=== PATIENT | female | born 1980 | race Caucasian/White ===

== ENCOUNTER 2016-08-16 23:50 | Emergency (ER) | payer OTHER ==
[2016-08-16 23:42] LABS: BASOPHILS 0.1 %; BASOPHILS ABSOLUTE 0.01 10/3/uL (0.0-0.16); EOSINOPHILS 1.2 %; EOSINOPHILS ABSOLUTE 0.09 10/3/uL (0.0-0.53); HEMATOCRIT 38.6 % (36.0-48.0); HEMOGLOBIN 13.2 g/dL (12.0-16.0); IMMATURE GRANULOCYTES 0.1 %; IMMATURE GRANULOCYTES ABSOLUTE 0.01 10/3/uL (0.0-0.11); LYMPHOCYTES 23.4 %; LYMPHOCYTES ABSOLUTE 1.73 10/3/uL (0.67-4.30); MEAN CORPUS HGB CONC 34.2 g/dL (32.0-36.0); MEAN CORPUSCULAR HEMOGLOB 28.9 pg (26.0-34.0); MEAN CORPUSCULAR VOLUME 84.6 fL (80-100); MEAN PLATELET VOLUME 9.8 fL (9.2-13.0); MONOCYTES 5.8 %; MONOCYTES ABSOLUTE 0.43 10/3/uL (0.21-1.20); NEUTROPHILS 69.4 %; NEUTROPHILS ABSOLUTE 5.11 10/3/uL (2.02-8.40); PLATELET COUNT 285 10/3/uL (150-400); RBC DISTRIBUTION WIDTH 12.7 % (12.0-16.0); RED CELL COUNT 4.56 10/6/uL (4.0-5.6); WHITE BLOOD CELLS 7.4 10/3/uL (4.5-10.5)
[2016-08-16 23:43] LABS: MANUAL DIFF NO %
[2016-08-16 23:50] LABS: ASCORBIC ACID (UR NOT ORDER) NEG (NEG); BILIRUBIN, URINE NEGATIVE (NEG); ER URINALYSIS TAT 0 Hrs 09 Mins; KETONE, URINE NEGATIVE (NEG); LEUKOCYTE ESTERASE(NOT OR NEG (NEG); NITRITE (URINE) POS (NEG); WBC (NOT ORDERED) (RFLEX) 2 (0-5)
[2016-08-16 23:58] LABS: ALBUMIN 3.8 G/DL (3.5-5.0); ALKALINE PHOSPHATASE 84 U/L (45-117); BUN (BLOOD UREA NITROGEN) 11 MG/DL (6-23); CALCIUM, SERUM 9.2 MG/DL (8.5-10.4); CHLORIDE, SERUM 109 MMOL/L (96-112); CO2 (CARBON DIOXIDE) 24 MMOL/L (24-34); CREATININE 0.72 MG/DL (0.55-1.02); GFR AFRICAN AMERICAN 125 ML/MIN (>=60); GFR NON AFRICAN AMERICAN 108 ML/MIN (>=60); GLOBULIN 3.7 G/DL (2.5-4.1); GLUCOSE, SERUM 101 MG/DL (60-99); POTASSIUM, SERUM 3.8 MMOL/L (3.5-5.3); SGOT(AST) 15 U/L (5-40); SGPT(ALT) 22 U/L (5-65); SODIUM, SERUM 141 MMOL/L (135-148); TOTAL BILIRUBIN 0.4 MG/DL (0-1.2); TOTAL PROTEIN 7.5 G/DL (6.0-8.5)
[2016-11-24] MEDS ORDERED: MYRBETRIQ50 MG PO (11:29)
[2016-11-24] MEDS ORDERED: PROTONIX PO (11:29)
[2016-11-24] MEDS ORDERED: ELLURA PO (11:31)
[2016-11-24] MEDS ORDERED: EXCEDRIN TENSI1 EACH PO (11:32)
[2016-11-24] MEDS ORDERED: D MANNOSE PO (11:33)
== END 2016-08-17 03:39 | disposition home or self-care (01) ==
LOC: ER 23:50
PROVIDERS: Emergency Medicine
DX: N39.0 Urinary tract infection, site not specified (principal); R10.13 Epigastric pain; Z90.49 Acquired absence of other specified parts of digestive tract; Z88.5 Allergy status to narcotic agent
CPT/HCPCS: 71010; 74176; 80053; 81001; 83690; 84703; 85025; 96374; 99284; A9270-GY; J1170; J2405

== ENCOUNTER 2016-11-26 14:35 | Observation (INO) | payer OTHER ==
[~2016-11-26] VITALS: Ht 162.6 cm; Wt 85.4 kg
--- NOTE | ~2016-11-26 | CN ---
Consultation Report [facility] [address] [place]. [address] NAME: ROBERT BURGOS : 80 STATUS : DIS Napoleon PAT#: [id number] AGE: 36 ADM/REG DATE : 11/26/16 MR#: [id number] REPORT SERV DATE: 11/27/16 DICTATED BY: HARITHA MATOS DATE: 11/27/16 REPORT STATUS : Draft TRANSCRIBED BY: MODL DATE: 11/27/16 GI CONSULTATION DATE OF CONSULTATION: 11/27/2016 REASON FOR CONSULTATION: Evaluation and management of abdominal pain, status post endoscopic ultrasound. HISTORY OF PRESENT ILLNESS: Ms. Burgos is a 36-year-old female patient, who is known to Dr. Padma Cunha in the outpatient setting, who had an endoscopic ultrasound under the direction of Dr. Antoine on 11/26/2016 secondary to suspected chronic pancreatitis. Exam showed pancreatic parenchymal abnormalities consisting of lobularity throughout the entire pancreas. The pancreatic duct had normal endoscopic appearance, measuring up to 1 mm. No sign of significant pathology in the common bile duct. No pathology in the duodenum. Endoscopic images of the stomach were unremarkable. No pathology was seen in the esophagus. There were no biopsies or tissue samples taken. At that point in time, she states that she was discharged to home. She began to have abdominal pain as well as fevers up to 101.3 degrees. She called the office and was directed here for further evaluation. In brief, the patient has a history of chronic abdominal pain, which began in 2011 shortly after cholecystectomy. She states that she had previously been diagnosed with pancreatic divisum with stenting to the pancreatic duct before. She states that she continues to have recurrent bouts of epigastric bandlike pain and was seen by Dr. Cunha after she moved from the [place] to [place]. At current time of my rounding, the patient's pain has improved. She has been able to eat and tolerate a vegetarian diet without any pain, and she has been afebrile since admission. She did have a slightly elevated white blood cell count of 12.8 on admission, currently it is 6.5. She would like to go home. Pain and nausea medications have been left by the hospitalist. I have discussed with her, if she is tolerating a diet, she can be discharged later today to follow up with Dr. Cunha. For other testing, per Dr. Antoine' orders. PAST MEDICAL HISTORY: For chronic abdominal pain, pancreatic divisum, history of ERCP- induced pancreatitis, chronic cholecystitis with cholecystectomy in the past, pancreatic ductal stone with removal, chronic pancreatitis by EUS. SURGERIES: Cholecystectomy, appendectomy, pancreatic stent with removal. ALLERGIES: NOTED TO MORPHINE. HOME MEDICATIONS: Zyrtec, cranberry, Myrbetriq, Protonix, Ellura, D mannose [id number] supplement. REVIEW OF SYSTEMS: A 10-point review of systems has been obtained with pertinent positives being addressed in the history of present illness. Consultation Report [place] [id number] [facility] [place]. [address] NAME: ROBERT BURGOS : 80 STATUS : DIS Napoleon PAT#: [id number] AGE: 36 ADM/REG DATE : 11/26/16 MR#: [id number] REPORT SERV DATE: 11/27/16 DICTATED BY: HARITHA MATOS DATE: 11/27/16 REPORT STATUS : Draft TRANSCRIBED BY: MALGORZATA DATE: 11/27/16 PHYSICAL EXAMINATION: VITAL SIGNS: Temperature 98.9, pulse 90, respirations 21, blood pressure 119/71. NEURO: Reveals an alert, female, resting in bed with no focal deficits being noted. GENERAL: She is cooperative. She is in no acute distress. She is awake, alert, and oriented x3. HEAD, EARS, EYES, NOSE, AND THROAT: Anicteric. Pupils are equal, round, reactive to light and accommodation. Normocephalic and atraumatic. NECK: No JVD. No palpable nodes. Supple. LUNGS: Clear but with shallow inspiratory effort. CARDIOVASCULAR SYSTEM: Regular rate and rhythm. ABDOMEN: Soft and obese. Mildly tender to palpation in the epigastric and right upper quadrant region. SKIN: Warm, dry, and intact. EXTREMITIES: Lower extremities with no edema. Normal distal pulses. PERTINENT LABORATORY DATA: Sodium 140, potassium 3.6, BUN is 7, creatinine 0.86. White count 6.5, hemoglobin is 11.5, hematocrit is 35.1, platelet count 241, INR of 1.1. ASSESSMENT: 1. Abdominal pain, fever with chills, status post EUS. 2. Chronic pancreatitis, status post EUS on 11/26/2016. 3. Systemic inflammatory response syndrome for mild acute pancreatitis. PLAN: 1. Advance diet. 2. Follow up with Dr. Cunha for IgG4 levels. 3. Pain and nausea medication on the chart. 4. Low-fat diet/vegetarian. DG/MODL BRODIE Navarro / [id number] CC: Luis Medrano Jr, MD Mark S. Crago, MD
--- NOTE | ~2016-11-26 | HP ---
History And Physical [place] [id number] [facility] [place]. [address] NAME: ROBERT BURGOS : 80 STATUS : ADM Napoleon PAT#: [id number] AGE: 36 ADM/REG DATE : 11/26/16 MR#: [id number] REPORT SERV DATE: 11/27/16 DICTATED BY: NETTIE DE LA GARZA DATE: 11/26/16 REPORT STATUS : Draft TRANSCRIBED BY: MODL DATE: 11/26/16 DATE OF ADMISSION: 11/26/2016 POINT OF ENTRY: [facility] Emergency Department. [employer] PROFESSIONAL: Dr. Padma Cunha and Dr. Antoine. CHIEF COMPLAINT: Fevers and abdominal pain. HISTORY OF PRESENT ILLNESS: Ms. Burgos is a 36-year-old female with history of chronic abdominal pain thought to be secondary to pancreatic divisum, who presents to the emergency department today with reports of fevers and abdominal pain, status post recent EGD and EUS with Dr. Antoine today. The patient has a history of chronic abdominal pain, which first started on 06/2011 shortly after cystectomy for what sounds to be for chronic cholecystitis. The patient has been seen both at [facility] by Dr. Funez as well as [facility] for further evaluation of her chronic abdominal pain. The patient states that she was diagnosed with pancreatic divisum by Dr. Funez of [facility] as well as during one ERCP, she was noted to have a pancreatic ductal stone that was subsequently removed. She did have a pancreatic stent placed and which was subsequently removed few months later without significant improvement of the patient's abdominal pain. The patient also does report a history of post ERCP pancreatitis as well. The patient has subsequently moved from [place] to [place] about one year ago and is now following with Dr. Cunha for her chronic abdominal pain. The patient underwent EGD with EUS with Dr. Antoine today. The pancreas that was noted to be somewhat enlarged and had some lobularity to it, making Dr. Antoine concern for possible autoimmune pancreatitis. Of note, the patient did have an MRCP in August of this year, which showed a completely normal pancreas as well as biliary ductal system. The patient states that shortly after EGD with EUS, she started to develop chills and fevers as high as 102 degrees Fahrenheit as well as the patient's classic abdominal pain with pain primarily located under her rib cage radiating to her back with associated nausea, but no vomiting. She denies any other obvious source of infections including cough, sputum production, shortness of breath, diarrhea, skin changes, or dysuria. Initial evaluation in the emergency department was notable for a temperature of 100.7 degrees Fahrenheit, pulse of 115. White count was mildly elevated at 12,800. Chest x-ray was unremarkable. CT of the abdomen and pelvis with IV contrast also unremarkable. Urinalysis was clear. Blood cultures were obtained. She was given IV fluids, antiemetics, pain control, one time dose of Levaquin, and admitted to the Hospitalist Service. History And Physical [address] [address] NAME: ROBERT BURGOS : 80 STATUS : ADM Napoleon PAT#: [id number] AGE: 36 ADM/REG DATE : 11/26/16 MR#: [id number] REPORT SERV DATE: 11/27/16 DICTATED BY: NETTIE DE LA GARZA DATE: 11/26/16 REPORT STATUS : Draft TRANSCRIBED BY: MALGORZATA DATE: 11/26/16 REVIEW OF SYSTEMS: Comprehensive systems otherwise negative unless listed in history of present illness. PAST MEDICAL HISTORY: 1. Chronic abdominal pain. 2. Pancreatic divisum. 3. Prior history of post ERCP pancreatitis. 4. Chronic cholecystitis, status post cholecystectomy. 5. Pancreatic ductal stone. SURGICAL HISTORY: 1. Cholecystectomy. 2. Appendectomy. 3. Pancreatic stent placement and removal. ALLERGIES: MORPHINE CAUSES VOMITING. HOME MEDICATIONS: 1. Cetirizine 10 mg daily p.r.n. 2. Cranberry extract 300 mg daily p.r.n. 3. Myrbetriq 50 mg at bedtime. 4. Protonix 40 mg at bedtime. 5. Ellura 36 mg at bedtime. 6. D mannose [id number] one tab at bedtime. SOCIAL HISTORY: Denies any tobacco, alcohol, or illicits. 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 FAMILY HISTORY: Mother, father, and siblings all reportedly healthy. LABS AND IMAGIN. White count 12.8, hemoglobin 13.4, hematocrit is 46.3, platelet count is 280. INR is 1.1. 2. Sodium is 138, potassium 3.9, chloride 107, carbon dioxide 23, BUN 9, creatinine 0.83, glucose is 105, calcium is 9.8. Protein is 8.6, albumin is 4.0, bilirubin is 0.3. ALT is 20, AST 14, alkaline phosphatase is 89. 3. Lipase is 247. 4. Lactic acid is 1.3. 5. Urinalysis: Spec gravity 1.008, no evidence of any infection. 6. Her chest x-ray per my review shows no acute cardiopulmonary abnormality. 7. CT scan of the abdomen and pelvis with IV contrast shows no acute abnormality identified. Of note, the liver, spleen, and pancreas all reportedly are normal appearing. 8. Per review of [employer] and [employer], the patient underwent EGD with EUS today which showed lobularity of pancreas lobular making Dr. Antoine concern for possible autoimmune pancreatitis. As mentioned previously, she also had an MRCP in August of this year, which was unremarkable. History And Physical [address] [address] NAME: ROBERT BURGOS : 80 STATUS : ADM Napoleon PAT#: [id number] AGE: 36 ADM/REG DATE : 11/26/16 MR#: [id number] REPORT SERV DATE: 11/27/16 DICTATED BY: NETTIE DE LA GARZA DATE: 11/26/16 REPORT STATUS : Draft TRANSCRIBED BY: MALGORZATA DATE: 11/26/16 PHYSICAL EXAMINATION: VITAL SIGNS: Temperature is 100.7 degrees Fahrenheit, pulse is 115, respirations 20, saturating 98% on room air, blood pressure 153/82. On recheck, blood pressure now 113/72, pulse of 91. GENERAL: The patient is awake, alert, in no acute distress. Resting comfortably in bed. She is nontoxic appearing. Mother is at bedside. HEENT: Atraumatic and normocephalic. Moist mucous membranes. Pupils are equal, round, reactive to light and accommodation. Extraocular eye movements are intact. No scleral icterus. NECK: No jugular venous distention. No carotid bruits. CARDIAC: Regular rate and rhythm. No murmurs or gallops. Normal S1, normal S2. LUNGS: Clear to auscultation bilaterally. No wheezes, rhonchi, or crackles. ABDOMEN: Nontender, nondistended with good bowel sounds. No rebound, guarding, or rigidity. EXTREMITIES: Warm and well-perfused. No cyanosis, clubbing, or edema. SKIN: Warm and dry. PSYCH: Affect appropriate. NEURO: Alert and oriented x3. Cranial nerves 2 through 12 grossly intact. Speech is normal. Gait not assessed. ASSESSMENT: Ms. Burgos is a 36-year-old female who presents with fevers, chills, abdominal pain, and nausea, status post recent EGD with EUS. PROBLEM LIST: 1. Systemic inflammatory response syndrome. 2. Acute on chronic abdominal pain. 3. History of pancreatic divisum. PLAN: 1. Systemic inflammatory response. She meets criteria with leukocytosis, tachycardia, and fevers. Source is unclear at this time as chest x-ray, urinalysis, and CT of the abdomen and pelvis are all unremarkable. Blood cultures were obtained. We will follow these up. We will check a procalcitonin level as well. Lactic acid is within normal limits. She has received IV fluids as well as Levaquin. We will hold further doses of antibiotics at this time. Pending identification of a source of the patient's SIRS criteria. We will consult Gastroenterology for assistance. 2. Acute on chronic abdominal pain. Consult Gastroenterology for assistance. No evidence of any acute source of the patient's abdominal pain as lipase within normal limits, lactic acid is normal, and CT of the abdomen and pelvis with IV contrast is also unremarkable. We will treat supportively with IV fluids, antiemetics, and pain control. GI consultation. 3. DVT prophylaxis. Lovenox subcu. CODE STATUS: The patient whishes to be full code. History And Physical [address] [address] NAME: ROBERT BURGOS : 80 STATUS : ADM Napoleon PAT#: [id number] AGE: 36 ADM/REG DATE : 11/26/16 MR#: [id number] REPORT SERV DATE: 11/27/16 DICTATED BY: NETTIE DE LA GARZA DATE: 11/26/16 REPORT STATUS : Draft TRANSCRIBED BY: MALGORZATA DATE: 11/26/16 ARMANDO/MALGORZATA Nettie De La Garza MD / [id number] CC: Lusi Medrano Jr, MD Vincent Magaña MD Colleen Schmitt, M.D.
--- NOTE | ~2016-11-26 | DS ---
Discharge Summary [place] [id number] [place]. [address] NAME: ROBERT BURGOS : 80 STATUS : DIS Napoleon PAT#: [id number] AGE: 36 ADM/REG DATE : 11/26/16 MR#: [id number] REPORT SERV DATE: 11/28/16 DICTATED BY: LEOPOLDO CASAS DATE: 11/27/16 REPORT STATUS : Draft TRANSCRIBED BY: MODL DATE: 11/27/16 ADMISSION DATE: 11/26/2016 DISCHARGE DATE: 11/27/2016 CONDITION ON DISCHARGE: Stable. DISPOSITION: Discharged to home. ADVICE ON DISCHARGE: To follow up with GI specialist within the next few weeks as scheduled. DIAGNOSES ON DISCHARGE: 1. Acute pancreatitis secondary to pancreas divisum- this is resolving. 2. Abdominal pain, nausea, vomiting - resolved. 3. The patient is status post EUS or endoscopic ultrasound, which was performed on 11/26/2016. 4. Acute flare-up of pancreatitis off and on from pancreas divisum. BRIEF HOSPITAL COURSE: Please refer to history and physical exam dictated on 11/26/[address] Kaiser. Essentially, the patient is a 36-year-old female patient who was admitted with fever, abdominal pain, and nausea. The patient has had an EUS after an EGD just a few hours ago and started to develop chills and fevers and hence the reason for admission. The patient feels much better today and she requests a regular diet. So far, she has only been on liquid diet. Hence, as she is feeling better, we will go ahead and advance her diet to soft GI diet if okay with GI and discharge her home as she is requesting. She states that she does have abdominal pain off and on and requests something for pain. She states Upperco has worked for her before. We will give her Upperco 7.5/325 one p.o. t.i.d. #15 only and no more than that. The patient is not on any chronic pain medication. We will also give her Zofran 4 mg 1 p.o. t.i.d. p.r.n. for nausea, but before discharge, we will advance her diet to see if she is able to tolerate soft GI diet and able to keep it down before discharge. Lab work that was done during hospitalization shows WBC count, which is completely normal on the day of discharge. Her hemoglobin and hematocrit are 11.5 in 35.1. Her procalcitonin level has come back less than 0.05, suggesting no significant infection. Electrolytes are normal. BUN and creatinine are normal. Lipase is normal at 152. Lactate level is normal at 1.3. Chest x-ray, PA and lateral view shows no acute cardiopulmonary abnormality. CT scan of the abdomen and pelvis shows no acute abnormality that was identified. EUS or endoscopic ultrasound that was done after an EGD shows a lobulation in the pancreas and this has been biopsied. Other than that, no abnormalities were seen in the esophagus, stomach, or duodenum. The patient also had LFTs that are completely normal at this time. Urinalysis is completely normal without any evidence of significant infection and test is negative. Hence, the patient will be discharged home on the following medications. Her home Discharge Summary [address] [address] NAME: ROBERT BURGOS : 80 STATUS : DIS Napoleon PAT#: [id number] AGE: 36 ADM/REG DATE : 11/26/16 MR#: [id number] REPORT SERV DATE: 11/28/16 DICTATED BY: LEOPOLDO CASAS DATE: 11/27/16 REPORT STATUS : Draft TRANSCRIBED BY: MALGORZATA DATE: 11/27/16 medications namely Myrbetriq will be resumed. However, we will go ahead and stop the Protonix as Protonix does have a small chance of causing pancreatitis. Hence, as her esophagus and stomach and duodenum was completely normal on EGD, we will stop the Protonix and keep her on Pepcid 40 mg once a day and this has a less likelihood of causing pancreatitis flare-up. At this time, I do not believe that she needs any antibiotics as she clinically looks really well, afebrile, normal white count, normal procalcitonin. We will give her a prescription for Pepcid 40 mg once a day #30, Upperco 7.5/325 one p.o. t.i.d. #15 only with no refills for the next few days for her abdominal pain, and Zofran 4 mg 1 p.o. t.i.d. p.r.n. for nausea #15 only for her nausea, and she is advised to follow up with her GI in the next few weeks. I have spent about 35 minutes in coordinating discharge care of this patient including [id number] encounter and summarizing this discharge. STEPHY/MALGORZATA Leopoldo Casas M.D. / [id number] CC: Luis Medrano Jr, MD Mark S. Crago, MD
[~2016-11-26 14:35] MED LIST: D MANNOSE PO; ELLURA PO; EXCEDRIN TENSI1 EACH PO; MYRBETRIQ50 MG PO; PROTONIX PO
[2016-11-26 15:21] LABS: WBC (NOT ORDERED) (RFLEX) 0 (0-5)
[2016-11-26 15:25] LABS: BASOPHILS 0.1 %; BASOPHILS ABSOLUTE 0.01 10/3/uL (0.0-0.16); EOSINOPHILS 0.1 %; EOSINOPHILS ABSOLUTE 0.01 10/3/uL (0.0-0.53); HEMATOCRIT 40.3 % (36.0-48.0); HEMOGLOBIN 13.4 g/dL (12.0-16.0); IMMATURE GRANULOCYTES 0.2 %; IMMATURE GRANULOCYTES ABSOLUTE 0.03 10/3/uL (0.0-0.11); LYMPHOCYTES 4.9 %; LYMPHOCYTES ABSOLUTE 0.63 10/3/uL (0.67-4.30); MEAN CORPUS HGB CONC 33.3 g/dL (32.0-36.0); MEAN CORPUSCULAR VOLUME 84.1 fL (80-100); MEAN PLATELET VOLUME 10.4 fL (9.2-13.0); MONOCYTES 5.5 %; MONOCYTES ABSOLUTE 0.71 10/3/uL (0.21-1.20); NEUTROPHILS 89.2 %; NEUTROPHILS ABSOLUTE 11.43 10/3/uL (2.02-8.40); PLATELET COUNT 288 10/3/uL (150-400); RBC DISTRIBUTION WIDTH 13.2 % (12.0-16.0); RED CELL COUNT 4.79 10/6/uL (4.0-5.6)
[2016-11-26 15:28] LABS: ER CBC TAT 0 Hrs 09 Mins; MANUAL DIFF NO %; WHITE BLOOD CELLS 12.8 10/3/uL (4.5-10.5)
[2016-11-26 15:28] LABS: ASCORBIC ACID (UR NOT ORDER) NEG (NEG); BILIRUBIN, URINE NEGATIVE (NEG); ER URINALYSIS TAT 0 Hrs 09 Mins; KETONE, URINE NEGATIVE (NEG); LEUKOCYTE ESTERASE(NOT OR NEG (NEG); NITRITE (URINE) NEG (NEG)
[2016-11-26 15:34] LABS: INTERNATIONAL NORMAL RATI 1.1 UNITS (-); PARTIAL THROMBO TIME 29.6 SEC (22.5-37.2)
[2016-11-26 15:40] LABS: A/G RATIO 0.9 (0.7-1.9); ALKALINE PHOSPHATASE 89 U/L (45-117); BUN (BLOOD UREA NITROGEN) 9 MG/DL (6-23); CHLORIDE, SERUM 107 MMOL/L (96-112); CO2 (CARBON DIOXIDE) 23 MMOL/L (24-34); CREATININE 0.83 MG/DL (0.55-1.02); GFR AFRICAN AMERICAN 105 ML/MIN (>=60); GFR NON AFRICAN AMERICAN 91 ML/MIN (>=60); POTASSIUM, SERUM 3.9 MMOL/L (3.5-5.3); SGOT(AST) 14 U/L (5-40); SGPT(ALT) 20 U/L (5-65); SODIUM, SERUM 138 MMOL/L (135-148); TOTAL BILIRUBIN 0.3 MG/DL (0-1.2); TOTAL PROTEIN 8.6 G/DL (6.0-8.5)
[2016-11-26 15:41] LABS: CALCIUM, SERUM 9.8 MG/DL (8.5-10.4); GLOBULIN 4.6 G/DL (2.5-4.1); GLUCOSE, SERUM 105 MG/DL (60-99)
[2016-11-26 15:42] LABS: LACTATE 2.5 MMOL/L (0.3-2.4)
[2016-11-26] MEDS ORDERED: PROTONIX PO (22:29)
[2016-11-26] MEDS ORDERED: MYRBETRIQ50 MG PO (22:30)
[2016-11-26] MEDS ORDERED: [UNRECOGNIZED DRUG - OTHER] PO (22:32)
[2016-11-26] MEDS ORDERED: ELLURA PO (22:32)
[2016-11-26] MEDS ORDERED: ZYRTEC ALLGY10 MG PO (22:33)
[2016-11-26] MEDS ORDERED: CRANBERRY300 MG PO (22:34)
[2016-11-27 04:59] LABS: BASOPHILS 0.2 %; BASOPHILS ABSOLUTE 0.01 10/3/uL (0.0-0.16); EOSINOPHILS 0.6 %; EOSINOPHILS ABSOLUTE 0.04 10/3/uL (0.0-0.53); HEMOGLOBIN 11.5 g/dL (12.0-16.0); IMMATURE GRANULOCYTES 0.3 %; IMMATURE GRANULOCYTES ABSOLUTE 0.02 10/3/uL (0.0-0.11); LYMPHOCYTES 27.7 %; LYMPHOCYTES ABSOLUTE 1.79 10/3/uL (0.67-4.30); MEAN CORPUS HGB CONC 32.8 g/dL (32.0-36.0); MEAN CORPUSCULAR HEMOGLOB 27.6 pg (26.0-34.0); MEAN CORPUSCULAR VOLUME 84.4 fL (80-100); MEAN PLATELET VOLUME 10.3 fL (9.2-13.0); MONOCYTES 10.7 %; MONOCYTES ABSOLUTE 0.69 10/3/uL (0.21-1.20); NEUTROPHILS 60.5 %; NEUTROPHILS ABSOLUTE 3.92 10/3/uL (2.02-8.40); PLATELET COUNT 241 10/3/uL (150-400); RBC DISTRIBUTION WIDTH 13.5 % (12.0-16.0); RED CELL COUNT 4.16 10/6/uL (4.0-5.6)
[2016-11-27 05:02] LABS: BUN (BLOOD UREA NITROGEN) 7 MG/DL (6-23); CALCIUM, SERUM 8.3 MG/DL (8.5-10.4); CHLORIDE, SERUM 108 MMOL/L (96-112); CO2 (CARBON DIOXIDE) 25 MMOL/L (24-34); CREATININE 0.86 MG/DL (0.55-1.02); GFR AFRICAN AMERICAN 101 ML/MIN (>=60); GFR NON AFRICAN AMERICAN 87 ML/MIN (>=60); GLUCOSE, SERUM 90 MG/DL (60-99); POTASSIUM, SERUM 3.6 MMOL/L (3.5-5.3); SODIUM, SERUM 140 MMOL/L (135-148)
[2016-11-27 05:06] LABS: HEMATOCRIT 35.1 % (36.0-48.0); WHITE BLOOD CELLS 6.5 10/3/uL (4.5-10.5)
[2016-11-27 05:07] LABS: MANUAL DIFF NO %
[2016-11-27 05:23] LABS: PROCALCITONIN <0.05 ng/mL (<0.5)
[2016-11-27] MEDS ORDERED: NORCO1 TA2 PO (09:48)
[2016-11-27] MEDS ORDERED: ZOFRAN4 PO (09:48)
[2016-11-27] MEDS ORDERED: PEPCID40 MG PO (09:49)
== END 2016-11-27 14:46 | disposition home or self-care (01) ==
LOC: ER 14:35 → 4SO 23:30
PROVIDERS: Emergency Medicine; Internal Medicine Gastroenterology
PROC: 0DJ08ZZ Inspection of Upper Intestinal Tract, Via Natural or Artificial Opening Endoscopic (ICD-10-PCS; principal; 2016-11-26)
PROC: BD47ZZZ Ultrasonography of Gastrointestinal Tract (ICD-10-PCS; 2016-11-26)
DX: Q45.3 Other congenital malformations of pancreas and pancreatic duct (principal); K85.90 Acute pancreatitis without necrosis or infection, unspecified; K86.1 Other chronic pancreatitis; K86.89 Other specified diseases of pancreas; G89.29 Other chronic pain; R10.9 Unspecified abdominal pain; Z98.890 Other specified postprocedural states; Z90.49 Acquired absence of other specified parts of digestive tract; Z88.5 Allergy status to narcotic agent; Z79.899 Other long term (current) drug therapy; Z90.89 Acquired absence of other organs
CPT/HCPCS: 71020; 74177; 80048; 80053; 81001; 82787; 82787-59; 83605; 83690; 84145; 84703; 85025; 85610; 85730; 87040; 93005; 96365; 96366; 96372; 96375; 96376; 99285; A9270-GY; C1725; C9113; G0378; J1170; J1956; J2405; J2550